=== PATIENT | female | born 1950 | race Caucasian/White ===

== ENCOUNTER → 2021-11-08 10:18 | Outpatient (CLI) | payer MEDICARE, SELFPAY ==
--- NOTE | ~2021-11-08 | XR_ITS ---
EXAMINATION: XR shoulder RT min 2V INDICATION: Right shoulder pain TECHNIQUE: Two views of the right shoulder are submitted. COMPARISON: None FINDINGS: Normal alignment. No fracture. There is mild osteoarthritis of the glenohumeral joint and m oderate osteoarthritis of the acromioclavicular joint. Soft tissues are unremarkable. IMPRESSION: 1. No acute osseous abnormality. Reviewed, dictated and finalized at location F. [employer] PROFESSOR
== END ==
PROVIDERS: PCP Family Medicine; Visit Provider Specialist
DX: M25.511 Pain in right shoulder (principal)
CPT/HCPCS: 73030

== ENCOUNTER 2024-01-26 11:28 | Outpatient (CLI) | payer MEDICARE, OTHER, SELFPAY ==
--- NOTE | ~2024-01-26 | XR_ITS ---
EXAMINATION:XR cervical spine 4-5V DATE: 01/26/2024 11:59 INDICATION: Neck pain TECHNIQUE: AP, lateral, lateral swimmers and odontoid views of the cervical spine are provided. COMPARISON: 05/29/2013 FINDINGS: Mild reversal of the normal lordosis in the lower cervical spine. Odontoid is intact. Normal atlanto axial interval. Vertebral body heights are normal. Severe disc height loss at C5-C6, moderate at C6-C 7 and mild at C4-C5. There is multilevel severe left-sided and moderate right-sided cervical facet os teoarthritis. There is suggestion of osseous fusion across at least one if not both of the C4-C5 face t joints. There is also moderate to severe cervical uncovertebral osteoarthritis. There is prevertebr al soft tissue swelling at the upper cervical spine which is of indeterminate etiology or significanc e. IMPRESSION: 1. Severe lower cervical spondylosis. 2. Upper cervical prevertebral soft tissue swelling which is of indeterminate etiology or significanc e. Consider contrast-enhanced neck CT for further evaluation. Reviewed, dictated and finalized at location A. IMPRESSION: 1. Severe lower cervical spondylosis. 2. Upper cervical prevertebral soft tissue swelling which is of indeterminate e tiology or significance. Consider contrast-enhanced neck CT for further evaluat ion.
== END 2024-01-26 11:29 ==
PROVIDERS: Visit Provider Internal Medicine
DX: M43.02 Spondylolysis, cervical region (principal)
CPT/HCPCS: 72050